=== PATIENT | female | born 1940 | race Caucasian/White ===

== ENCOUNTER → 2018-01-26 12:55 | Outpatient (REF) | payer MEDICARE, SELFPAY ==
[2018-01-26 13:38] LABS: Hematocrit 51.6 % (37-47); Hemoglobin 17.2 g/dl (12.0-15.0); Mean Corp Hgb Conc 33.3 g/gl (32-36); Mean Corpuscular Hgb 32.9 pg (27.0-32.0); Mean Corpuscular Volume 98.7 fL (81-99); Mean Platelet Vol. 11.2 fl (6.2-12.0); Platelet Count 218 K/mm3 (150-450); RBC Distribution Width CV 13.7 % (11.6-14.6); RBC Distribution Width SD 49.2 fl (35.1-43.9); Red Blood Count 5.23 M/mm3 (4.2-5.4)
[2018-01-26 13:39] LABS: Scan Indicated on CBC? Y/N NO
[2018-01-26 13:47] LABS: Anion Gap 12 (5-15); BUN 70 mg/dL (7-18); BUN/Creat Ratio 34.8 RATIO (10-20); Chloride 95 mmol/L (98-107); Creatinine, Serum 2.01 mg/dL (0.55-1.02); EST Glomerular Filtration Rate 25 mL/min (>60); Est Glom Filt Rate - Afr Amer 31 mL/min (>60); Glucose 188 mg/dL (74-106); Potassium 4.4 mmol/L (3.5-5.1); Sodium Level 131 mmol/L (136-145)
== END ==
LOC: OLS.ACW300 12:55
PROVIDERS: Visit Provider Family Medicine
DX: R53.1 Weakness (principal); R63.1 Polydipsia
CPT/HCPCS: 36415; 80048; 85027

== ENCOUNTER → 2018-01-26 14:30 | Outpatient (REF) | payer MEDICARE, SELFPAY ==
[2018-01-28 12:21] LABS: Color, Urine Brown (Yellow); Glucose, Dipstick Normal (Normal); Ketone-Dipstick 15 mg/dl (Negative); Leukocyte Esterase-Dipstick 100 /ul (Negative); Nitrite-Dipstick Negative (Negative); Occult Blood-Urine 150 /ul (Negative); Protein-Dipstick 100 mg/dl (Negative); Urine Clarity Cloudy (Clear); Urine Urobilinogen 8 mg/dl (Normal)
[2018-01-28 12:27] LABS: Urine Bilirubin Dipstick 3 mg/dL (Negative)
== END ==
LOC: OLS.ACW300 14:30
PROVIDERS: Visit Provider Family Medicine
DX: I67.848 Other cerebrovascular vasospasm and vasoconstriction (principal); E11.51 Type 2 diabetes mellitus with diabetic peripheral angiopathy without gangrene; I11.9 Hypertensive heart disease without heart failure
CPT/HCPCS: 81002; 87086; 87088

== ENCOUNTER → 2018-01-27 05:00 | Outpatient (REF) | payer MEDICARE, SELFPAY ==
[2018-01-27 08:42] LABS: Anion Gap 12 (5-15); BUN 68 mg/dL (7-18); BUN/Creat Ratio 55.7 RATIO (10-20); Calcium,Total 9.6 mg/dL (8.5-10.1); Chloride 95 mmol/L (98-107); Creatinine, Serum 1.22 mg/dL (0.55-1.02); EST Glomerular Filtration Rate 45 mL/min (>60); Est Glom Filt Rate - Afr Amer 55 mL/min (>60); Glucose 160 mg/dL (74-106); Potassium 3.9 mmol/L (3.5-5.1); Sodium Level 131 mmol/L (136-145)
== END ==
LOC: OLS.ACW300 05:00
PROVIDERS: Visit Provider Family Medicine
DX: I67.848 Other cerebrovascular vasospasm and vasoconstriction (principal); E11.51 Type 2 diabetes mellitus with diabetic peripheral angiopathy without gangrene; I11.9 Hypertensive heart disease without heart failure
CPT/HCPCS: 36415; 80048

== ENCOUNTER → 2018-01-28 05:00 | Outpatient (REF) | payer MEDICARE, SELFPAY ==
[2018-01-28 08:36] LABS: Hemoglobin 15.3 g/dl (12.0-15.0); Mean Corpuscular Hgb 32.2 pg (27.0-32.0); Mean Corpuscular Volume 94.7 fL (81-99); Platelet Count 204 K/mm3 (150-450); RBC Distribution Width CV 13.3 % (11.6-14.6); RBC Distribution Width SD 45.1 fl (35.1-43.9); Red Blood Count 4.75 M/mm3 (4.2-5.4)
[2018-01-28 08:37] LABS: Scan Indicated on CBC? Y/N NO
[2018-01-28 09:03] LABS: BUN 34 mg/dL (7-18); Creatinine, Serum 0.82 mg/dL (0.55-1.02); Glucose 134 mg/dL (74-106)
[2018-01-28 09:04] LABS: Anion Gap 6 (5-15); BUN/Creat Ratio 41.3 RATIO (10-20); Calcium,Total 9.5 mg/dL (8.5-10.1); Chloride 97 mmol/L (98-107); EST Glomerular Filtration Rate 71 mL/min (>60); Est Glom Filt Rate - Afr Amer 86 mL/min (>60); Potassium 3.4 mmol/L (3.5-5.1); Sodium Level 135 mmol/L (136-145)
== END ==
LOC: OLS.ACW300 05:00
PROVIDERS: Visit Provider Family Medicine
DX: I67.848 Other cerebrovascular vasospasm and vasoconstriction (principal); I11.9 Hypertensive heart disease without heart failure; E11.51 Type 2 diabetes mellitus with diabetic peripheral angiopathy without gangrene
CPT/HCPCS: 36415; 80048; 85027

== ENCOUNTER → 2018-01-31 05:00 | Outpatient (REF) | payer MEDICARE, SELFPAY ==
[2018-01-31 08:41] LABS: Hematocrit 42.5 % (37-47); Hemoglobin 13.8 g/dl (12.0-15.0); Mean Corp Hgb Conc 32.5 g/gl (32-36); Mean Corpuscular Hgb 31.9 pg (27.0-32.0); Mean Corpuscular Volume 98.4 fL (81-99); Mean Platelet Vol. 10.3 fl (6.2-12.0); Platelet Count 275 K/mm3 (150-450); RBC Distribution Width CV 13.5 % (11.6-14.6); RBC Distribution Width SD 47.9 fl (35.1-43.9); Red Blood Count 4.32 M/mm3 (4.2-5.4); White Blood Count 14.2 K/mm3 (4.4-11.0)
[2018-01-31 08:47] LABS: Scan Indicated on CBC? Y/N NO
[2018-01-31 08:59] LABS: Anion Gap 8 (5-15); BUN 18 mg/dL (7-18); BUN/Creat Ratio 27.5 RATIO (10-20); Calcium,Total 9.2 mg/dL (8.5-10.1); Chloride 101 mmol/L (98-107); Creatinine, Serum 0.66 mg/dL (0.55-1.02); EST Glomerular Filtration Rate 93 mL/min (>60); Est Glom Filt Rate - Afr Amer 112 mL/min (>60); Glucose 107 mg/dL (74-106); Potassium 3.5 mmol/L (3.5-5.1); Sodium Level 139 mmol/L (136-145)
== END ==
LOC: OLS.ACW300 05:00
PROVIDERS: Visit Provider Family Medicine
DX: I67.848 Other cerebrovascular vasospasm and vasoconstriction (principal); E11.51 Type 2 diabetes mellitus with diabetic peripheral angiopathy without gangrene; I11.9 Hypertensive heart disease without heart failure
CPT/HCPCS: 36415; 80048; 85027

== ENCOUNTER → 2018-02-03 05:00 | Outpatient (REF) | payer MEDICARE, SELFPAY ==
[2018-02-03 07:44] LABS: Hemoglobin 13.8 g/dl (12.0-15.0); Mean Corp Hgb Conc 32.9 g/gl (32-36); Mean Corpuscular Hgb 32.2 pg (27.0-32.0); Mean Corpuscular Volume 97.9 fL (81-99); Mean Platelet Vol. 9.5 fl (6.2-12.0); Platelet Count 273 K/mm3 (150-450); RBC Distribution Width CV 13.1 % (11.6-14.6); RBC Distribution Width SD 46.5 fl (35.1-43.9); Red Blood Count 4.29 M/mm3 (4.2-5.4); White Blood Count 8.5 K/mm3 (4.4-11.0)
[2018-02-03 07:53] LABS: Scan Indicated on CBC? Y/N NO
[2018-02-03 08:06] LABS: ALB/GLOB Ratio 0.5 RATIO (0.9-2.4); AST(SGOT) 23 U/L (15-37); Alanine Aminotransfer ALT/SGPT 23 U/L (13-56); Alkaline Phosphatase 71 U/L (45-117); Anion Gap 7 (5-15); BUN 14 mg/dL (7-18); BUN/Creat Ratio 22.6 RATIO (10-20); Calcium,Total 8.8 mg/dL (8.5-10.1); Chloride 103 mmol/L (98-107); Creatinine, Serum 0.62 mg/dL (0.55-1.02); EST Glomerular Filtration Rate 99 mL/min (>60); Est Glom Filt Rate - Afr Amer 120 mL/min (>60); Globulin 4.1 g/dL (2.2-4.2); Glucose 125 mg/dL (74-106); Potassium 3.4 mmol/L (3.5-5.1); Protein, Total 6.1 g/dL (6.4-8.2); Sodium Level 139 mmol/L (136-145)
== END ==
LOC: OLS.ACW300 05:00
PROVIDERS: Visit Provider Family Medicine
DX: I67.848 Other cerebrovascular vasospasm and vasoconstriction (principal); E11.51 Type 2 diabetes mellitus with diabetic peripheral angiopathy without gangrene; I11.9 Hypertensive heart disease without heart failure
CPT/HCPCS: 36415; 80053; 85027

== ENCOUNTER → 2018-02-12 04:10 | Outpatient (REF) | payer MEDICARE, SELFPAY ==
[2018-02-12 07:52] LABS: Color, Urine Yellow (Yellow); Glucose, Dipstick Normal (Normal); Ketone-Dipstick Negative (Negative); Leukocyte Esterase-Dipstick 25 /ul (Negative); Nitrite-Dipstick Negative (Negative); Occult Blood-Urine Negative /ul (Negative); Protein-Dipstick 15 mg/dl (Negative); Specific Gravity, Urine 1.015 (1.002-1.030); Urine Bilirubin Dipstick Negative (Negative); Urine Clarity Clear (Clear); Urine Urobilinogen Normal (Normal)
== END ==
LOC: OLS.ACW300 04:10
PROVIDERS: Visit Provider Family Medicine
DX: I67.848 Other cerebrovascular vasospasm and vasoconstriction (principal); E11.51 Type 2 diabetes mellitus with diabetic peripheral angiopathy without gangrene; I11.9 Hypertensive heart disease without heart failure
CPT/HCPCS: 81002; 87086; 87088

== ENCOUNTER → 2018-02-18 04:30 | Outpatient (REF) | payer MEDICARE, SELFPAY ==
[2018-02-18 08:13] LABS: Color, Urine Yellow (Yellow); Glucose, Dipstick Normal (Normal); Ketone-Dipstick Negative (Negative); Leukocyte Esterase-Dipstick 25 /ul (Negative); Nitrite-Dipstick Negative (Negative); Occult Blood-Urine Negative /ul (Negative); Protein-Dipstick Negative (Negative); Specific Gravity, Urine 1.015 (1.002-1.030); Urine Bilirubin Dipstick Negative (Negative); Urine Clarity Sl. Cloudy (Clear); Urine Urobilinogen Normal (Normal)
== END ==
LOC: OLS.ACW300 04:30
PROVIDERS: Visit Provider Family Medicine
DX: I67.848 Other cerebrovascular vasospasm and vasoconstriction (principal); E11.51 Type 2 diabetes mellitus with diabetic peripheral angiopathy without gangrene; I11.9 Hypertensive heart disease without heart failure
CPT/HCPCS: 81002; 87086; 87088

== ENCOUNTER → 2020-01-15 10:39 | Outpatient (REF) | payer MEDICARE, MEDICAID, SELFPAY | LOC: OLS.ACW300 10:39 | PROVIDERS: Visit Provider Family Medicine | DX: Z03.818 Encounter for observation for suspected exposure to other biological agents ruled out (principal) | CPT/HCPCS: 87635; U0003 ==

== ENCOUNTER → 2020-01-21 13:13 | Outpatient (REF) | payer MEDICARE, MEDICAID, SELFPAY | LOC: OLS.ACW300 13:13 | PROVIDERS: Family Medicine; Referring Provider Family Medicine; Visit Provider Family Medicine | DX: Z03.818 Encounter for observation for suspected exposure to other biological agents ruled out (principal) | CPT/HCPCS: 87635; U0003 ==

== ENCOUNTER → 2020-03-09 13:09 | Outpatient (REF) | payer MEDICARE, MEDICAID, SELFPAY | LOC: OLS.ACW100 13:09 | PROVIDERS: Referring Provider Family Medicine; Visit Provider Family Medicine | DX: Z03.818 Encounter for observation for suspected exposure to other biological agents ruled out (principal) | CPT/HCPCS: 87635; U0003 ==

== ENCOUNTER → 2020-04-11 04:00 | Outpatient (REF) | payer MEDICARE, MEDICAID, SELFPAY ==
[2020-04-11 08:13] LABS: Hematocrit 45.8 % (37-47); Hemoglobin 14.6 g/dL (12.0-15.0); Mean Corp Hgb Conc 31.9 g/dL (32-36); Mean Corpuscular Hgb 30.3 pg (27.0-32.0); Mean Platelet Vol. 12.2 fl (6.2-12.0); Platelet Count 223 K/mm3 (150-450); RBC Distribution Width CV 13.5 % (11.6-14.6); RBC Distribution Width SD 47.7 fl (35.1-43.9); Red Blood Count 4.82 M/mm3 (4.2-5.4); White Blood Count 20.1 K/mm3 (4.4-11.0)
[2020-04-11 08:40] LABS: Anion Gap 12 (5-15); BUN 101 mg/dL (7-18); BUN/Creat Ratio 28.6 RATIO (10-20); Calcium,Total 10.4 mg/dL (8.5-10.1); Chloride 103 mmol/L (98-107); Creatinine, Serum 3.53 mg/dL (0.55-1.02); EST Glomerular Filtration Rate 13 mL/min (>60); Est Glom Filt Rate - Afr Amer 16 mL/min (>60); Glucose 165 mg/dL (74-106); Sodium Level 140 mmol/L (136-145)
== END ==
LOC: OLS.ACW300 04:00
PROVIDERS: Referring Provider Family Medicine; Visit Provider Family Medicine
DX: I67.848 Other cerebrovascular vasospasm and vasoconstriction (principal); U07.1 COVID-19; I11.9 Hypertensive heart disease without heart failure; F03.91 Unspecified dementia, unspecified severity, with behavioral disturbance
CPT/HCPCS: 36415; 80048; 85027

== ENCOUNTER → 2020-04-12 05:00 | Outpatient (REF) | payer MEDICARE, MEDICAID, SELFPAY ==
[2020-04-12 07:45] LABS: Hematocrit 45.8 % (37-47); Hemoglobin 14.8 g/dL (12.0-15.0); Mean Corp Hgb Conc 32.3 g/dL (32-36); Mean Corpuscular Volume 95.8 fL (81-99); Mean Platelet Vol. 11.8 fl (6.2-12.0); Platelet Count 208 K/mm3 (150-450); RBC Distribution Width CV 13.6 % (11.6-14.6); RBC Distribution Width SD 47.8 fl (35.1-43.9); Red Blood Count 4.78 M/mm3 (4.2-5.4)
[2020-04-12 08:06] LABS: Color, Urine Yellow (Yellow); Glucose, Dipstick 100 mg/dl (Normal); Ketone-Dipstick 5 mg/dl (Negative); Leukocyte Esterase-Dipstick 500 /ul (Negative); Nitrite-Dipstick Negative (Negative); Occult Blood-Urine 250 /ul (Negative); Protein-Dipstick 100 mg/dl (Negative); Specific Gravity, Urine 1.015 (1.002-1.030); Urine Bilirubin Dipstick Negative (Negative); Urine Clarity Sl. Cloudy (Clear); Urine Urobilinogen Normal (Normal)
[2020-04-12 09:01] LABS: Anion Gap 8 (5-15); BUN 93 mg/dL (7-18); Calcium,Total 10.3 mg/dL (8.5-10.1); Chloride 106 mmol/L (98-107); Creatinine, Serum 3.45 mg/dL (0.55-1.02); EST Glomerular Filtration Rate 14 mL/min (>60); Est Glom Filt Rate - Afr Amer 16 mL/min (>60); Glucose 151 mg/dL (74-106); Potassium 4.1 mmol/L (3.5-5.1); Sodium Level 140 mmol/L (136-145)
== END ==
LOC: OLS.ACW300 05:00
PROVIDERS: Referring Provider Family Medicine; Visit Provider Family Medicine
DX: F03.91 Unspecified dementia, unspecified severity, with behavioral disturbance (principal); I67.848 Other cerebrovascular vasospasm and vasoconstriction; U07.1 COVID-19; I11.9 Hypertensive heart disease without heart failure
CPT/HCPCS: 36415; 80048; 81002; 85027; 87086; 87088

== ENCOUNTER → 2020-04-12 12:02 | Outpatient (REF) | payer MEDICARE, MEDICAID, SELFPAY ==
[2020-04-12 13:17] LABS: Procalcitonin 0.53 ng/mL (0.00-0.09)
[2020-04-12 13:20] LABS: Lactic Acid 1.7 mmol/L (0.4-1.9)
== END ==
LOC: OLS.ACW300 12:02
DX: R00.0 Tachycardia, unspecified (principal); R53.82 Chronic fatigue, unspecified; E86.0 Dehydration; D72.829 Elevated white blood cell count, unspecified
CPT/HCPCS: 36415; 83605; 84145

== ENCOUNTER → 2020-04-13 05:00 | Outpatient (REF) | payer MEDICARE, MEDICAID, SELFPAY ==
[2020-04-13 08:35] LABS: Anion Gap 6 (5-15); BUN 87 mg/dL (7-18); BUN/Creat Ratio 27.7 RATIO (10-20); Calcium,Total 10.1 mg/dL (8.5-10.1); Chloride 106 mmol/L (98-107); Creatinine, Serum 3.14 mg/dL (0.55-1.02); EST Glomerular Filtration Rate 15 mL/min (>60); Est Glom Filt Rate - Afr Amer 18 mL/min (>60); Glucose 128 mg/dL (74-106); Potassium 4.3 mmol/L (3.5-5.1); Sodium Level 139 mmol/L (136-145)
== END ==
LOC: OLS.ACW300 05:00
PROVIDERS: Referring Provider Family Medicine; Visit Provider Family Medicine
DX: I67.848 Other cerebrovascular vasospasm and vasoconstriction (principal); U07.1 COVID-19; I11.9 Hypertensive heart disease without heart failure; F03.91 Unspecified dementia, unspecified severity, with behavioral disturbance
CPT/HCPCS: 36415; 80048

== ENCOUNTER → 2020-04-14 07:30 | Outpatient (REF) | payer MEDICARE, MEDICAID, SELFPAY ==
[2020-04-14 08:47] LABS: Anion Gap 7 (5-15); BUN 79 mg/dL (7-18); BUN/Creat Ratio 27.1 RATIO (10-20); Calcium,Total 9.5 mg/dL (8.5-10.1); Chloride 107 mmol/L (98-107); Creatinine, Serum 2.92 mg/dL (0.55-1.02); EST Glomerular Filtration Rate 16 mL/min (>60); Est Glom Filt Rate - Afr Amer 20 mL/min (>60); Glucose 115 mg/dL (74-106); Potassium 3.9 mmol/L (3.5-5.1); Sodium Level 137 mmol/L (136-145)
== END ==
LOC: OLS.ACW300 07:30
PROVIDERS: Visit Provider Family Medicine
DX: I67.848 Other cerebrovascular vasospasm and vasoconstriction (principal); U07.1 COVID-19; I11.9 Hypertensive heart disease without heart failure; F03.91 Unspecified dementia, unspecified severity, with behavioral disturbance
CPT/HCPCS: 36415; 80048

== ENCOUNTER → 2020-04-18 04:00 | Outpatient (REF) | payer MEDICARE, MEDICAID, SELFPAY ==
[2020-04-18 07:56] LABS: Hematocrit 49.3 % (37-47); Hemoglobin 15.6 g/dL (12.0-15.0); Mean Corp Hgb Conc 31.6 g/dL (32-36); Mean Corpuscular Volume 97.8 fL (81-99); Mean Platelet Vol. 11.8 fl (6.2-12.0); Platelet Count 177 K/mm3 (150-450); RBC Distribution Width CV 14.2 % (11.6-14.6); RBC Distribution Width SD 50.4 fl (35.1-43.9); Red Blood Count 5.04 M/mm3 (4.2-5.4); White Blood Count 16.8 K/mm3 (4.4-11.0)
[2020-04-18 08:18] LABS: ALB/GLOB Ratio 0.4 RATIO (0.9-2.4); AST(SGOT) 69 U/L (15-37); Alanine Aminotransfer ALT/SGPT 27 U/L (13-56); Albumin, Serum 2.3 g/dL (3.2-5.0); Alkaline Phosphatase 112 U/L (45-117); Anion Gap 13 (5-15); BUN 57 mg/dL (7-18); BUN/Creat Ratio 22.2 RATIO (10-20); Calcium,Total 8.7 mg/dL (8.5-10.1); Chloride 106 mmol/L (98-107); Creatinine, Serum 2.57 mg/dL (0.55-1.02); EST Glomerular Filtration Rate 19 mL/min (>60); Est Glom Filt Rate - Afr Amer 23 mL/min (>60); Globulin 5.4 g/dL (2.2-4.2); Glucose 144 mg/dL (74-106); Potassium 4.4 mmol/L (3.5-5.1); Prolactin 10.7 ng/mL; Protein, Total 7.7 g/dL (6.4-8.2); Sodium Level 137 mmol/L (136-145)
[2020-04-18 08:21] LABS: Lactic Acid 1.7 mmol/L (0.4-1.9)
== END ==
LOC: OLS.ACW300 04:00
PROVIDERS: Visit Provider Family Medicine
DX: I67.848 Other cerebrovascular vasospasm and vasoconstriction (principal); U07.1 COVID-19; I11.9 Hypertensive heart disease without heart failure; F03.91 Unspecified dementia, unspecified severity, with behavioral disturbance
CPT/HCPCS: 36415; 80053; 83605; 84146; 85027

== ENCOUNTER → 2020-04-21 05:00 | Outpatient (REF) | payer MEDICARE, MEDICAID, SELFPAY ==
[2020-04-21 08:32] LABS: Mean Corp Hgb Conc 32.6 g/dL (32-36); Mean Corpuscular Hgb 31.3 pg (27.0-32.0); Mean Platelet Vol. 12.7 fl (6.2-12.0); Platelet Count 203 K/mm3 (150-450); RBC Distribution Width CV 14.6 % (11.6-14.6); RBC Distribution Width SD 50.9 fl (35.1-43.9); Red Blood Count 4.48 M/mm3 (4.2-5.4); White Blood Count 18.4 K/mm3 (4.4-11.0)
[2020-04-21 08:45] LABS: Anion Gap 9 (5-15); BUN 91 mg/dL (7-18); BUN/Creat Ratio 29.2 RATIO (10-20); Calcium,Total 10.3 mg/dL (8.5-10.1); Chloride 107 mmol/L (98-107); Creatinine, Serum 3.12 mg/dL (0.55-1.02); EST Glomerular Filtration Rate 15 mL/min (>60); Est Glom Filt Rate - Afr Amer 18 mL/min (>60); Glucose 147 mg/dL (74-106); Potassium 3.4 mmol/L (3.5-5.1); Sodium Level 143 mmol/L (136-145)
[2020-04-21 08:53] LABS: Procalcitonin 0.29 ng/mL (0.00-0.09)
== END ==
LOC: OLS.ACW300 05:00
PROVIDERS: Visit Provider Family Medicine
DX: I67.848 Other cerebrovascular vasospasm and vasoconstriction (principal); I11.9 Hypertensive heart disease without heart failure; F03.91 Unspecified dementia, unspecified severity, with behavioral disturbance
CPT/HCPCS: 36415; 80048; 84145; 85027

== ENCOUNTER → 2020-04-22 05:00 | Outpatient (REF) | payer MEDICARE, MEDICAID, SELFPAY ==
[2020-04-22 09:42] LABS: Lactic Acid 1.2 mmol/L (0.4-1.9)
[2020-04-22 09:51] LABS: Procalcitonin 0.29 ng/mL (0.00-0.09)
== END ==
LOC: OLS.ACW300 05:00
PROVIDERS: Referring Provider Family Medicine; Visit Provider Family Medicine
DX: I67.848 Other cerebrovascular vasospasm and vasoconstriction (principal); F03.91 Unspecified dementia, unspecified severity, with behavioral disturbance; I11.9 Hypertensive heart disease without heart failure; F33.1 Major depressive disorder, recurrent, moderate
CPT/HCPCS: 36415; 83605; 84145; 87040

== ENCOUNTER → 2020-04-23 07:01 | Outpatient (REF) | payer MEDICARE, MEDICAID, SELFPAY ==
[2020-04-25 07:22] LABS: Color, Urine Yellow (Yellow); Glucose, Dipstick 50 mg/dl (Normal); Ketone-Dipstick Negative (Negative); Leukocyte Esterase-Dipstick Negative /ul (Negative); Nitrite-Dipstick Negative (Negative); Occult Blood-Urine 50 /ul (Negative); Protein-Dipstick 100 mg/dl (Negative); Urine Bilirubin Dipstick Negative (Negative); Urine Clarity Sl. Cloudy (Clear); Urine Urobilinogen Normal (Normal)
== END ==
LOC: OLS.ACW300 07:01
PROVIDERS: Visit Provider Family Medicine
DX: I67.848 Other cerebrovascular vasospasm and vasoconstriction (principal); F03.91 Unspecified dementia, unspecified severity, with behavioral disturbance; I11.9 Hypertensive heart disease without heart failure; F33.1 Major depressive disorder, recurrent, moderate; Z79.899 Other long term (current) drug therapy
CPT/HCPCS: 81002; 87077; 87086; 87088

== ENCOUNTER → 2020-05-04 04:00 | Outpatient (REF) | payer MEDICARE, MEDICAID, SELFPAY | LOC: OLS.ACW300 04:00 | PROVIDERS: Visit Provider Family Medicine | DX: I67.848 Other cerebrovascular vasospasm and vasoconstriction (principal); F03.91 Unspecified dementia, unspecified severity, with behavioral disturbance; I11.9 Hypertensive heart disease without heart failure; F33.1 Major depressive disorder, recurrent, moderate | CPT/HCPCS: 87070; 87077; 87186; 87205 ==